=== PATIENT | female | born 1955 | race African-American/Black ===

== ENCOUNTER 2024-04-13 09:34 | Emergency (ER) | payer OTHER ==
[~2024-04-13] VITALS: Ht 162.6 cm; Wt 76.2 kg
[2024-04-13 09:39] VITALS: O2SAT 98
[2024-04-13] MEDS ORDERED: IBUP-2029 MT (10:45)
[2024-04-13 11:03] VITALS: BP 140/80
[2024-04-13] MEDS: IBUPROFEN 600MG TABLET PO ONE (11:03)
[2024-04-13 11:04] VITALS: PULSE 96; RESP 14; TEMP 98
== END 2024-04-13 11:05 | disposition home or self-care (01) ==
LOC: ER 09:34
DX: S43.401A Unspecified sprain of right shoulder joint, initial encounter (principal); E11.9 Type 2 diabetes mellitus without complications; I10 Essential (primary) hypertension; Z88.8 Allergy status to other drugs, medicaments and biological substances; Z90.49 Acquired absence of other specified parts of digestive tract; Z98.890 Other specified postprocedural states; W18.30XA Fall on same level, unspecified, initial encounter; Y93.89 Activity, other specified; Y92.89 Other specified places as the place of occurrence of the external cause; Y99.8 Other external cause status
CPT/HCPCS: 73030; 99283

== ENCOUNTER 2024-04-15 09:21 | Emergency (ER) | payer OTHER ==
[~2024-04-15] VITALS: Ht 162.6 cm; Wt 75.0 kg
[~2024-04-15 09:21] MED LIST: IBUP-2029 MT
[2024-04-15 09:47] VITALS: O2SAT 96
[2024-04-15] MEDS: ACETAMINOPHEN 325MG TABLET PO ONE (11:01)
[2024-04-15 12:30] VITALS: BP 135/80; PULSE 77; RESP 16; TEMP 98.5
== END 2024-04-15 13:40 | disposition home or self-care (01) ==
LOC: ER 09:21
DX: S40.021A Contusion of right upper arm, initial encounter (principal); M25.511 Pain in right shoulder; E11.9 Type 2 diabetes mellitus without complications; I10 Essential (primary) hypertension; Z90.49 Acquired absence of other specified parts of digestive tract; Z88.8 Allergy status to other drugs, medicaments and biological substances; Z98.890 Other specified postprocedural states; W22.8XXA Striking against or struck by other objects, initial encounter; Y93.89 Activity, other specified; Y92.89 Other specified places as the place of occurrence of the external cause; Y99.8 Other external cause status
CPT/HCPCS: 71045; 73030; 73060; 73070; 99284

== ENCOUNTER 2025-03-03 11:57 | Emergency (ER) | payer OTHER ==
[~2025-03-03] VITALS: Ht 162.6 cm; Wt 68.0 kg
[2025-03-03 12:03] VITALS: BP 154/65; PULSE 84; RESP 16; TEMP 37.4; O2SAT 97
[2025-03-03] MEDS ORDERED: IBUP-2029 MT (13:22)
== END 2025-03-03 14:04 | disposition home or self-care (01) ==
LOC: ER 11:57
DX: S80.01XA Contusion of right knee, initial encounter (principal); I10 Essential (primary) hypertension; E11.9 Type 2 diabetes mellitus without complications; Z88.8 Allergy status to other drugs, medicaments and biological substances; Z90.49 Acquired absence of other specified parts of digestive tract; W01.0XXA Fall on same level from slipping, tripping and stumbling without subsequent striking against object, initial encounter; Y93.89 Activity, other specified; Y92.89 Other specified places as the place of occurrence of the external cause; Y99.8 Other external cause status
CPT/HCPCS: 73030; 73560; 99284